=== PATIENT | male | born 1940 | race Caucasian/White ===

== ENCOUNTER 2019-05-03 21:12 | Inpatient (IN) | payer MEDICARE ==
[~2019-05-03] VITALS: Ht 154.9 cm; Wt 60.8 kg
[2019-05-03] MEDS ORDERED: SODIUM CHLORIDE 0.9% 500 ML IV ONE (21:30)
[2019-05-03 22:05] LABS: BASOPHILS % 0.3 % (0.0-2.0); EOSINOPHILS % 3.1 % (0.0-5.0); HEMATOCRIT. 40.8 % (42.0-52.0); HEMOGLOBIN. 14.1 g/dL (14.0-18.0); LYMPHOCYTES % 9.6 % (20.0-50.0); MEAN CORPUSCULAR HEMOGLOBIN 32.7 pg (28.0-32.0); MEAN CORPUSCULAR VOLUME 94.4 fL (80.0-94.0); MEAN PLATELET VOLUME 7.9 fl (7.4-10.4); MONOCYTES % 6.1 % (2.0-8.0); NEUTROPHILS % 80.9 % (40.0-76.0); PLATELET 155 x1000/uL (130-400); RED BLOOD CELL COUNT 4.32 mill/uL (4.7-6.1); RED CELL DISTRIBUTION WIDTH 12.3 % (11.6-14.6)
[2019-05-03 22:11] LABS: CHLORIDE 98 mEq/L (98-107)
[2019-05-03 22:17] LABS: PROTHROMBIN TIME 10.1 sec (9.6-11.0)
[2019-05-03 22:34] LABS: CLARITY URINE CLEAR (CLEAR); COLOR URINE YELLOW (YELLOW); KETONES URINE NEGATIVE (NEGATIVE); LEUKOCYTE ESTERASE URINE NEGATIVE (NEGATIVE); NITRITE URINE NEGATIVE (NEGATIVE); OCCULT BLOOD URINE NEGATIVE (NEGATIVE); PH URINE 5.5 (4.5-8.0); PROTEIN URINE NEGATIVE (NEGATIVE); SPECIFIC GRAVITY URINE 1.016 (1.005-1.030); UROBILINOGEN URINE 0.2 E.U./dL (0.2-1.0)
[2019-05-03] MEDS ORDERED: FAMOTIDINE 20MG/2ML VIAL IV ONE (23:15)
[2019-05-03 23:16] LABS: HEMATOCRIT 36.8 % (42.0-52.0); HEMOGLOBIN 12.5 g/dL (14.0-18.0)
[2019-05-04 03:40] VITALS: BP 162/69
[2019-05-04] MEDS ORDERED: GLIP5TAB12 PO (03:40)
[2019-05-04] MEDS ORDERED: SIMV40TA5 PO (03:40)
[2019-05-04] MEDS ORDERED: SITA100T11 PO (03:40)
[2019-05-04] MEDS ORDERED: LISI-604 PO (03:40)
[2019-05-04] MEDS ORDERED: DEXTROSE 50% WATER 50ML SYRINGE IV PRN (04:30)
[2019-05-04] MEDS: DEXT 5%/0.45% NACL 1000ML 1,000 ML IV SCH (05:47)
[2019-05-04] MEDS: INSULIN LISPRO 100 UNITS/ML SUBCUT SCH ×4 (06:54→22:33)
[2019-05-04] MEDS: BLOOD SUGAR DIAGNOSTIC STRIP TEST SCH ×4 (06:54→21:36)
[2019-05-04 08:00] VITALS: BP 110/53
[2019-05-04 09:08] LABS: HEMATOCRIT 34.1 % (42.0-52.0); MEAN CORPUSCULAR HEMOGLOBIN 33.2 pg (28.0-32.0); MEAN CORPUSCULAR VOLUME 94.1 fL (80.0-94.0); PLATELET 131 x1000/uL (130-400); RED BLOOD CELL COUNT 3.63 mill/uL (4.7-6.1); RED CELL DISTRIBUTION WIDTH 12.2 % (11.6-14.6)
[2019-05-04] MEDS: PANTOPRAZOLE SODIUM 40 MG/VIAL IV SCH (09:10)
[2019-05-04 11:59] VITALS: BP 111/48
[2019-05-04] MEDS ORDERED: CLONIDINE 0.1MG TABLET PO PRN (14:30)
[2019-05-04] MEDS ORDERED: HYDROCODONE/ACETAMINOPHEN 5/325MG TABLET PO PRN (14:30)
[2019-05-04] MEDS ORDERED: DIPHENHYDRAMINE 50MG/ML VIAL IM PRN (14:30)
[2019-05-04] MEDS ORDERED: DOCUSATE SODIUM 100MG CAPSULE PO PRN (14:30)
[2019-05-04] MEDS ORDERED: HYDRALAZINE 20MG/ML VIAL IV PRN (14:30)
[2019-05-04 16:00] VITALS: BP 110/44
[2019-05-04] MEDS: PIPERACILLIN/TAZOBACTAM 3.375 G in DEXT 5% WATER 100 ML IV SCH ×2 (18:43→23:33)
[2019-05-04 19:06] LABS: TOTAL IRON BINDING CAPACITY 246 ug/dL (250-450)
[2019-05-04 19:24] LABS: FERRITIN 188 ng/mL (22-322)
[2019-05-04 19:33] LABS: VITAMIN B12 SERUM 390 pg/mL (211-911)
[2019-05-04 20:00] VITALS: BP 129/59
[2019-05-05 03:51] VITALS: BP 127/48
[2019-05-05] MEDS: PIPERACILLIN/TAZOBACTAM 3.375 G in DEXT 5% WATER 100 ML IV SCH ×2 (05:23→12:23)
[2019-05-05] MEDS: DEXT 5%/0.45% NACL 1000ML 1,000 ML IV SCH ×2 (05:23→18:37)
[2019-05-05] MEDS: INSULIN LISPRO 100 UNITS/ML SUBCUT SCH ×3 (05:28→17:40)
[2019-05-05] MEDS: BLOOD SUGAR DIAGNOSTIC STRIP TEST SCH ×3 (05:28→17:10)
[2019-05-05 08:00] VITALS: BP 133/79
[2019-05-05 08:16] LABS: BASOPHILS % 0.7 % (0.0-2.0); EOSINOPHILS % 8.3 % (0.0-5.0); HEMATOCRIT. 34.9 % (42.0-52.0); HEMOGLOBIN. 12.2 g/dL (14.0-18.0); LYMPHOCYTES % 22.3 % (20.0-50.0); MEAN CORPUSCULAR HEMOGLOBIN 32.9 pg (28.0-32.0); MEAN CORPUSCULAR VOLUME 93.9 fL (80.0-94.0); MEAN PLATELET VOLUME 8.4 fl (7.4-10.4); MONOCYTES % 9.1 % (2.0-8.0); NEUTROPHILS % 59.6 % (40.0-76.0); PLATELET 135 x1000/uL (130-400); RED BLOOD CELL COUNT 3.72 mill/uL (4.7-6.1); RED CELL DISTRIBUTION WIDTH 12.2 % (11.6-14.6)
[2019-05-05] MEDS: PANTOPRAZOLE SODIUM 40 MG/VIAL IV SCH (09:10)
[2019-05-05 11:35] VITALS: BP 119/55
[2019-05-05] MEDS ORDERED: PANTOPRAZOLE SODIUM 40 MG/VIAL IV SCH (12:15)
[2019-05-05] MEDS ORDERED: METRONIDAZOLE 500 MG PREMIX 100 ML IV SCH (14:30)
[2019-05-05] MEDS ORDERED: LEVOFLOXACIN 500MG PREMIX 100 ML IV NR ×2 (15:00→17:00)
[2019-05-05 15:39] LABS: HEMATOCRIT 34.8 % (42.0-52.0)
[2019-05-05 15:43] VITALS: BP 122/53
[2019-05-05 16:12] LABS: FOLIC ACID (FOLATE) SERUM > 20.00 ng/mL (>5.38)
[2019-05-05 18:10] LABS: HEMATOCRIT 36.5 % (42.0-52.0); HEMOGLOBIN 12.6 g/dL (14.0-18.0)
[2019-05-05 21:28] VITALS: BP 136/55
[2019-05-06] MEDS ORDERED: FAMOTIDINE 20MG/2ML VIAL IV SCH (09:00)
[2019-05-06] MEDS ORDERED: LEVOFLOXACIN 250MG PREMIX 50 ML IV SCH (17:00)
== END 2019-05-05 22:15 | disposition home or self-care (01) | DRG 377 ==
LOC: ER 21:12 → 8WST 23:59 → EDBEDREQ 05-04 00:05 → EDBEDREQTM 05-04 00:05 → ENRESERV 05-04 02:48
PROVIDERS: ADMIT Internal Medicine; ATTEND Internal Medicine
DX: K57.93 Diverticulitis of intestine, part unspecified, without perforation or abscess with bleeding (principal); K85.90 Acute pancreatitis without necrosis or infection, unspecified; D53.9 Nutritional anemia, unspecified; E11.65 Type 2 diabetes mellitus with hyperglycemia; E78.00 Pure hypercholesterolemia, unspecified; E78.5 Hyperlipidemia, unspecified; E86.0 Dehydration; I10 Essential (primary) hypertension; Z53.29 Procedure and treatment not carried out because of patient's decision for other reasons; K80.20 Calculus of gallbladder without cholecystitis without obstruction; Z87.891 Personal history of nicotine dependence; Z79.899 Other long term (current) drug therapy; Z79.84 Long term (current) use of oral hypoglycemic drugs
CPT/HCPCS: 36415; 74176; 76705; 78278; 80048; 80061; 80076; 81003; 82150; 82378; 82607; 82728; 82746; 82962; 83036; 83540; 83550; 83735; 84132; 84484; 85014; 85018; 85027; 85044; 86256; 86671; 93005; 96374; 99285; A9560; C9113; J1815; J1956; J2543; J3490; J7040; J7060